=== PATIENT | female | born 2000 | race Caucasian/White ===

== ENCOUNTER 2020-12-22 21:33 | Emergency (ER) | payer MEDICAID, OTHER ==
--- NOTE | 2020-12-22 22:32 | EDM.PDOC ---
ED HPI GENERAL MEDICAL PROBLEM - General Chief Complaint: Respiratory Problem Stated Complaint: FEVER, ABDOMINAL PAIN, BODY ACHES, ASTHMA Time Seen by Provider: 12/22/20 21:36 Source of Information: Reports: Patient History Limitations: Reports: No Limitations - History of Present Illness INITIAL COMMENTS - FREE TEXT/NARRATIVE: 20-year-old female with history of asthma, , gestational age 21 weeks presents with fever, cough, myalgia, chills, throat discomfort. She had a T-max of 101.7 last night temporally. She denies dysuria or back pain but admits to right adnexal pain ONLY when she walks today. Pain is described as sharp. Currently she has no pain sitting there. She denies vaginal bleeding, leakage of fluid, mucous plug, nausea, vomiting, diarrhea. Her OB is Gaby Boo ROS: A 10-point review of systems, other than pertinent positives and negatives as stated per HPI, is otherwise negative Past medical history: No additional pertinent history Past Surgical history: No additional pertinent history Social history: No additional pertinent history Family history: No additional pertinent history PHYSICAL EXAM General: AOx4, GCS = 15, No distress HEENT: dry mucous membrane Neck: supple, no meningismus, no Kernig or Brudzinski Cardiac: S1S2 RRR Respiratory: CTAB, no crackles or rales, no wheezing Abdomen: Soft, FHT 152, nontender, no rebound or guarding, nondistended, no pulsatile mass. Back: nontender Musculoskeletal: NVI distally, no deformity Neuro: No focal deficits, CN 2 - 12 WNL. Right Lower Abdomen Pain Score (Numeric/FACES): 7 - Related Data Allergies Allergy/AdvReac Type Severity Reaction Status Date / Time No Known Allergies Allergy Verified 12/22/20 22:40 Home Meds: Home Meds Escitalopram Oxalate [Lexapro] 1 dose PO DAILY 12/22/20 [History] ED ROS GENERAL - Review of Systems Review Of Systems: See Below (see dictation) ED EXAM, GENERAL - Physical Exam Exam: See Below (see dictation) Course - Vital Signs Last Recorded V/S: Last Vital Signs Temp 97.6 F 12/22/20 22:40 Pulse 105 H 12/23/20 00:01 Resp 18 12/23/20 00:01 BP 109/54 L 12/23/20 00:01 Pulse Ox 98 12/23/20 00:01 - Orders/Labs/Meds Labs: Laboratory Tests 12/22/20 12/22/20 Range/Units 22:50 23:54 Urine Color DARK YELLOW Urine Appearance SLT CLOUDY Urine pH 5.5 (5.0-8.0) Ur Specific Hernando >= 1.030 (1.001-1.035) Urine Protein NEGATIVE (NEGATIVE) mg/dL Urine Glucose (UA) NEGATIVE (NEGATIVE) mg/dL Urine Ketones 15 H (NEGATIVE) mg/dL Urine Occult Blood NEGATIVE (NEGATIVE) Urine Nitrite NEGATIVE (NEGATIVE) Urine Bilirubin NEGATIVE (NEGATIVE) Urine Urobilinogen 1.0 (<2.0) EU/dL Ur Leukocyte Esterase NEGATIVE (NEGATIVE) Influenza Type A RNA NEGATIVE (NEGATIVE) Influenza Type B RNA NEGATIVE (NEGATIVE) SARS-CoV-2 RNA (MIYA) POSITIVE H (NEGATIVE) - Re-Assessments/Exams Free Text/Narrative Re-Assessment/Exam: 12/23/20 00:54 After observation in the ER, the patient improved and is currently stable for discharge. I performed a repeat exam and did not appreciate new abnormal findings. Patient exhibits normal vital signs and has a normal gait on road test. I advised the patient to return to the ER for reevaluation if symptoms worsened, including fever, worsening pain, or any other worrisome symptoms. I instructed the patient to follow up with their PCP within 2-3 days. MEDICAL DECISION MAKING: I reviewed the patients past medical records, lab and radiographic findings. I discussed the case with the patient. My differential diagnosis included: Covid, round ligament syndrome, UTI. This patient was evaluated for the symptoms described in the history of present illness. They were evaluated in the context of the global COVID-19 pandemic, which necessitated consideration that the patient might be at risk for infection with the SARS-CoV-2 virus that causes COVID-19. Institutional protocols and algorithms that pertain to the evaluation of patients at risk for COVID-19 are in a state of rapid change based on information released by regulatory bodies including the CDC and federal and state organizations. These policies and algorithms were followed during the patient's care. I wore full PPE, N95, face shield, gown and gloves throughout my evaluation and care of this patient. I recommended home isolation. given home isolation instructions. The patient is well appearing, not in respiratory distress, not hypoxic, no tachyneia, no retractions. I instructed patient to return immediately for worsening symptoms, sob, chest pain, lightheadedness or other concerns. Patient voiced understanding and questions answered. Departure - Departure Time of Disposition: 00:36 Disposition: Home, Self-Care 01 Condition: Good Clinical Impression: COVID-19, COVID-19 affecting in second trimester, Round ligament pain - Discharge Information *PRESCRIPTION DRUG MONITORING PROGRAM REVIEWED*: Not Applicable *COPY OF PRESCRIPTION DRUG MONITORING REPORT IN PATIENT KATRINA: Not Applicable Instructions: COVID-19 Vaccine Information, What You Should Know About COVID-19 to Protect Yourself and Others - CDC, and COVID-19, How to Wear and Take Off Your Mask - CDC (05/08/2020) Referrals: Bijan Wagner MD [Primary Care Provider] - 3 Days Forms: ED Department Discharge Additional Instructions: The need for follow-up, as well as the timing and circumstances, are variable depending upon the specifics of your emergency department visit. If you don't have a primary care physician on staff, we will provide you with a referral. We always advise you to contact your personal physician following an emergency department visit to inform them of the circumstance of the visit and for follow-up with them and/or the need for any referrals to a consulting specialist. The emergency department will also refer you to a specialist when appropriate. This referral assures that you have the opportunity for follow-up care with a specialist. All of these measure are taken in an effort to provide you with optimal care, which includes your follow-up. Under all circumstances we always encourage you to contact your private physician who remains a resource for coordinating your care. When calling for follow-up care, please make the office aware that this follow-up is from your recent emergency room visit. If for any reason you are refused follow-up, please contact the [facility] Emergency Department at and asked to speak to the emergency department charge nurse. If you do not have a primary care doctor, please follow up with the clinics below within 3-5 days. [facility] [address] [place] [id number] [facility] [address] [place] [phone] Sepsis Event Note (ED) - Focused Exam Vital Signs: Vital Signs Temp Pulse Resp BP Pulse Ox 12/23/20 00:01 105 H 18 109/54 L 98 12/22/20 22:40 97.6 F 99 16 114/64 97
[2020-12-22 23:52] LABS: CORONAVIRUS COVID-19 NAA POSITIVE (NEGATIVE); INFLUENZA A NAA NEGATIVE (NEGATIVE); INFLUENZA B NAA NEGATIVE (NEGATIVE)
--- NOTE | 2020-12-22 23:57 | CR ---
Indication: Chest pain Technique: Chest 1 view Comparison: None Findings/Impression: Cardiovascular and mediastinum: Heart size and vasculature are normal in caliber and appearance. Lungs and pleural space: No pleural effusion or pneumothorax. Minimal discoid atelectasis left lung base. Bones and soft tissues: Metal density overlies left breast, likely a clip. Dictated by Diallo Mayorga MD @ 12/22/2020 11:55:28 PM (Electronically Signed)
== END 2020-12-23 01:07 | disposition home or self-care (01) ==
LOC: MW.ED 21:33
DX: O98.512 Other viral diseases complicating pregnancy, second trimester (principal); U07.1 COVID-19; O99.891 Other specified diseases and conditions complicating pregnancy; R10.2 Pelvic and perineal pain; Z3A.21 21 weeks gestation of pregnancy
CPT/HCPCS: 0240U; 71045; 81003; 99284

== ENCOUNTER 2020-12-25 06:28 | Emergency (ER) | payer OTHER, MEDICAID ==
[2020-12-25] MEDS ORDERED: Albuterol/Ipratropium 3.0-0.5 MG/3 ML Neb Soln NEB ONE (06:47)
--- NOTE | 2020-12-25 07:53 | EDM.PDOC ---
ED HPI GENERAL MEDICAL PROBLEM - General Chief Complaint: Respiratory Problem Stated Complaint: ASTHMA ATTACK AND COVID POSITIVE Time Seen by Provider: 12/25/20 07:19 Source of Information: Reports: Patient History Limitations: Reports: No Limitations - History of Present Illness INITIAL COMMENTS - FREE TEXT/NARRATIVE: Patient is a 20-year-old female who is presents today for worsening Covid symptoms. Patient was tested positive for Covid recently states she also has asthma and feels that her asthma is bothering her. She is albuterol inhaler earlier so she is breathing better but has a chronic cough that she cannot get away from. States she is congested because she coughed so much. Patient denies any fever chills chest pain abdominal pain vaginal bleeding or discharge. Patient not tried any [id number] medication for her cough. 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: - Infectious Disease History Infectious Disease History: Reports: None Social & Family History - Family History Family Medical History: No Pertinent Family History - Tobacco Use Tobacco Use Status *Q: Never Tobacco User - Recreational Drug Use Recreational Drug Use: No ED ROS GENERAL - Review of Systems Review Of Systems: See Below Constitutional: Reports: No Symptoms HEENT: Reports: No Symptoms Respiratory: Reports: Cough Cardiovascular: Reports: No Symptoms Endocrine: Reports: No Symptoms GI/Abdominal: Reports: No Symptoms : Reports: No Symptoms Musculoskeletal: Reports: No Symptoms Skin: Reports: No Symptoms Neurological: Reports: No Symptoms Psychiatric: Reports: No Symptoms Hematologic/Lymphatic: Reports: No Symptoms Immunologic: Reports: No Symptoms ED EXAM, GENERAL - Physical Exam Exam: See Below Exam Limited By: No Limitations General Appearance: Alert, WD/WN, No Apparent Distress Eye Exam: Bilateral Eye: EOMI, PERRL Ears: Normal External Exam Throat/Mouth: Normal Inspection Head: Atraumatic Neck: Normal Inspection, Supple, Non-Tender Respiratory/Chest: No Respiratory Distress, Lungs Clear, Normal Breath Sounds Cardiovascular: Normal Peripheral Pulses, Regular Rate, Rhythm GI/Abdominal: Normal Bowel Sounds, Soft, Non-Tender Extremities: Normal Inspection, Normal Range of Motion Neurological: Alert, Oriented, Normal Cognition, Normal Gait Course - Vital Signs Last Recorded V/S: Last Vital Signs Temp 96.9 F 12/25/20 06:30 Pulse 103 H 12/25/20 07:10 Resp 18 12/25/20 07:10 BP 121/101 H 12/25/20 07:10 Pulse Ox 99 12/25/20 07:10 - Orders/Labs/Meds Orders: Active Orders 24 hr Category Date Time Status Cardiac Monitoring [RC] . DIRECTED Care 12/25/20 06:47 Active Pulse Oximetry [RC] ASDIRECTED Care 12/25/20 06:47 Active Meds: Medications Discontinued Medications Generic Name Dose Route Start Last Admin Trade Name Freq PRN Reason Stop Dose Admin Albuterol/Ipratropium 3 ml 12/25/20 06:47 12/25/20 07:09 Albuterol/Ipratropium 3.0-0.5 Mg/3 Ml Neb Soln NEB 12/25/20 06:48 3 ml ONETIME ONE Administration Departure - Departure Time of Disposition: 07:49 Disposition: Home, Self-Care 01 Condition: Good Clinical Impression: Cough - Discharge Information *PRESCRIPTION DRUG MONITORING PROGRAM REVIEWED*: Not Applicable *COPY OF PRESCRIPTION DRUG MONITORING REPORT IN PATIENT KATRINA: Not Applicable Instructions: Cough, Adult, [id number] Referrals: PCP,None [Primary Care Provider] - Additional Instructions: You were seen today for cough likely related to your Covid. We will send you home with cough medicine to help out with your coughing. If you have any increased shortness of breath please return to the ED or follow-up to primary care physician. Continue to follow-up with [facility]. The following information is given to patients seen in the emergency department who are being discharged to home. This information is to outline your options for follow-up care. We provide all patients seen in our emergency department with a follow-up referral. The need for follow-up, as well as the timing and circumstances, are variable depending upon the specifics of your emergency department visit. If you don't have a primary care physician on staff, we will provide you with a referral. We always advise you to contact your personal physician following an emergency department visit to inform them of the circumstance of the visit and for follow-up with them and/or the need for any referrals to a consulting specialist. The emergency department will also refer you to a specialist when appropriate. This referral assures that you have the opportunity for follow-up care with a specialist. All of these measure are taken in an effort to provide you with optimal care, which includes your follow-up. Under all circumstances we always encourage you to contact your private physician who remains a resource for coordinating your care. When calling for follow-up care, please make the office aware that this follow-up is from your recent emergency room visit. If for any reason you are refused follow-up, please contact the [facility] Emergency Department at and asked to speak to the emergency department charge nurse. Please follow up with your primary care physician. If you do not have a primary care physician, see below: [facility] [address] [place] [phone] [facility] [address] [place] [id number] [facility] [address] [place] [id number] [facility] [address] [place] [id number] Sepsis Event Note (ED) - Focused Exam Vital Signs: Vital Signs Temp Pulse Resp BP Pulse Ox 12/25/20 07:10 103 H 18 121/101 H 99 12/25/20 06:30 96.9 F 101 H 24 H 139/79 98 - Assessment/Plan Plan: Patient is a 20-year-old female history of asthma currently presents today for worsening cough. Patient was diagnosed with Covid a few days ago. On exam oxygen level was 100% on room air her lungs are clear bilaterally. Patient here mostly for the cough. We will send the patient home with cough suppressants and have patient follow-up with her PMD.
== END 2020-12-25 08:15 | disposition home or self-care (01) ==
LOC: MW.ED 06:28
DX: R05.9 Cough, unspecified (principal); Z86.16 Personal history of COVID-19
CPT/HCPCS: 94640; 99284-25; J7620-GY

== ENCOUNTER 2021-05-06 04:48 | Inpatient (IN) | payer MEDICAID ==
[2021-05-06] MEDS ORDERED: Misoprostol 200 MCG Tab PO PRN (05:54)
[2021-05-06] MEDS ORDERED: Lidocaine 1% 50 ML MDV INJECT PRN (05:54)
[2021-05-06] MEDS ORDERED: Tranexamic Acid 1,000 MG in Sodium Chloride 0.9% 100 ML IV PRN (05:54)
[2021-05-06] MEDS ORDERED: Carboprost Tromethamine 250 MCG/1 ML Amp IM PRN (05:54)
[2021-05-06] MEDS ORDERED: Methylergonovine 0.2 MG/1 ML Amp IM PRN (05:54)
[2021-05-06] MEDS ORDERED: Sodium Chloride 0.9% 2.5 ML Syringe FLUSH PRN (05:54)
[2021-05-06] MEDS ORDERED: Sodium Chloride 0.9% 20 ML SDV IV PRN (05:54)
[2021-05-06] MEDS ORDERED: Sodium Chloride 0.9% 10 ML Syringe FLUSH PRN (05:54)
[2021-05-06] MEDS ORDERED: Water For Irrigation,Sterile 1,000 ML Container IRR PRN (05:54)
[2021-05-06] MEDS ORDERED: Oxytocin/0.9 % Sodium Chloride 30 UNIT/500 ML BAG IV SCH ×2 (06:00→08:15)
[2021-05-06] MEDS ORDERED: Terbutaline 1 MG/ML SDV SUBCUT PRN (08:14)
[2021-05-06] MEDS: Lactated Ringers 1,000 ML IV SCH ×3 (08:50→19:21)
[2021-05-06] MEDS: Butorphanol 1 MG/ML SDV IVPUSH PRN ×2 (09:25→13:41)
[2021-05-06] MEDS ORDERED: Ropivacaine 100 ML ONE (15:15)
[2021-05-06] MEDS ORDERED: fentaNYL 100 MCG/2 ML SDV ONE (15:15)
[2021-05-06] MEDS ORDERED: Ampicillin 2 GM in Sodium Chloride 0.9% 100 ML IV ONE (19:00)
[2021-05-06] MEDS: Acetaminophen 500 MG Tab PO PRN (19:23)
[2021-05-06] MEDS ORDERED: SODIUM CHLORIDE 0.9% IV ONE (20:00)
[2021-05-06] MEDS ORDERED: GENTAMICIN IV ONE (20:00)
[2021-05-06] MEDS: Ampicillin 1 GM in Sodium Chloride 0.9% 50 ML IV SCH (23:37)
[2021-05-07] MEDS: Acetaminophen 500 MG Tab PO PRN ×3 (01:24→16:26)
[2021-05-07] MEDS ORDERED: fentaNYL 100 MCG/2 ML SDV ONE ×2 (01:35→09:08)
[2021-05-07] MEDS ORDERED: Ropivacaine 100 ML ONE ×2 (01:36→09:08)
[2021-05-07] MEDS ORDERED: Bupivacaine 0.25% 10 ML SDV ONE (01:38)
[2021-05-07] MEDS: Ampicillin 1 GM in Sodium Chloride 0.9% 50 ML IV SCH ×2 (03:39→07:55)
[2021-05-07] MEDS ORDERED: Ondansetron 4 MG/2 ML SDV IVPUSH ONE (07:29)
[2021-05-07] MEDS ORDERED: Lanolin 100% Cream 7 GM Tube TOP PRN (09:27)
[2021-05-07] MEDS ORDERED: Witch Hazel Medicated Pads 40/Jar TOP PRN (09:27)
[2021-05-07] MEDS ORDERED: Bisacodyl 10 MG Supp RECTAL PRN (09:27)
[2021-05-07] MEDS ORDERED: Benzocaine/Menthol 20%-0.5% Spray 78 GM Cannister TOP PRN (09:27)
[2021-05-07] MEDS: Ibuprofen 800 MG Tab PO PRN ×2 (10:01→20:01)
[2021-05-07] MEDS: oxyCODONE 5 MG Tab PO PRN (10:40)
[2021-05-07] MEDS ORDERED: GENTAMICIN IV SCH (20:00)
[2021-05-07] MEDS ORDERED: SODIUM CHLORIDE 0.9% IV SCH (20:00)
[2021-05-07] MEDS: Docusate Sodium 100 MG Cap PO PRN (20:01)
[2021-05-08] MEDS: Acetaminophen 500 MG Tab PO PRN (03:03)
[2021-05-08] MEDS: Ibuprofen 800 MG Tab PO PRN ×2 (07:33→18:40)
[2021-05-08] MEDS: Escitalopram 10 MG Tab PO SCH (09:21)
[2021-05-08] MEDS: Docusate Sodium 100 MG Cap PO PRN (09:22)
[2021-05-08] MEDS: oxyCODONE 5 MG Tab PO PRN (23:25)
[2021-05-09] MEDS: Docusate Sodium 100 MG Cap PO PRN (00:14)
[2021-05-09] MEDS: Ibuprofen 800 MG Tab PO PRN (06:05)
[2021-05-09] MEDS: Escitalopram 10 MG Tab PO SCH (10:31)
== END 2021-05-09 12:55 | disposition home or self-care (01) | DRG 805 ==
LOC: MW.OBCHECK 04:48 → MW.OB 04:49 → MW.OBCHECK 05:54 → MW.OB 05:54 → OBSVTOIN 05-07 09:27 → MW.OB 05-07 14:25
PROVIDERS: ADMIT Obstetrics & Gynecology; ATTEND Obstetrics & Gynecology
PROC: 10E0XZZ Delivery of Products of Conception, External Approach (ICD-10-PCS; principal; 2021-05-07)
PROC: 3E0R3BZ Introduction of Anesthetic Agent into Spinal Canal, Percutaneous Approach (ICD-10-PCS; 2021-05-07)
PROC: 00HU33Z Insertion of Infusion Device into Spinal Canal, Percutaneous Approach (ICD-10-PCS; 2021-05-07)
PROC: 0HQ9XZZ Repair Perineum Skin, External Approach (ICD-10-PCS; 2021-05-07)
DX: O42.92 Full-term premature rupture of membranes, unspecified as to length of time between rupture and onset of labor (principal); O41.1230 Chorioamnionitis, third trimester, not applicable or unspecified; Z37.0 Single live birth; Z3A.40 40 weeks gestation of pregnancy; O99.52 Diseases of the respiratory system complicating childbirth; J45.909 Unspecified asthma, uncomplicated; O99.344 Other mental disorders complicating childbirth; F41.8 Other specified anxiety disorders; O77.0 Labor and delivery complicated by meconium in amniotic fluid; O70.0 First degree perineal laceration during delivery; Z20.822 Contact with and (suspected) exposure to COVID-19; Z86.16 Personal history of COVID-19
CPT/HCPCS: 01967; 36415; 51702; 59025; 59200; 59409; 80170; 84112; 85014; 85018; 85027; 86592; 86850; 86900; 86901; A9270-GY; J0290; J0595; J1580; J2405; J2590; J2795; J3010; J3490; J7120; U0002

== ENCOUNTER 2021-11-23 18:19 | Emergency (ER) | payer MEDICAID | END 2021-11-23 21:00 | disposition home or self-care (01) | LOC: MW.ED 18:19 | DX: S62.626A Displaced fracture of middle phalanx of right little finger, initial encounter for closed fracture (principal); J45.909 Unspecified asthma, uncomplicated; Z86.16 Personal history of COVID-19; Z79.899 Other long term (current) drug therapy; Z91.048 Other nonmedicinal substance allergy status; W22.8XXA Striking against or struck by other objects, initial encounter | CPT/HCPCS: 73130-26-RT; 73130-RT; 99282; 99283 ==

== ENCOUNTER 2023-04-18 21:13 | Emergency (ER) | payer MEDICAID, OTHER ==
[2023-04-18] MEDS ORDERED: Naloxone 0.4 MG/ML SDV IVPUSH PRN (22:46)
[2023-04-18 22:59] LABS: BASOPHILS ABSOLUTE AUTO 0.03 K/uL (0.00-0.20); BASOPHILS PERCENT AUTO 0.3 % (0.0-1.0); EOSINOPHILS ABSOLUTE AUTO 0.26 K/uL (0.00-0.45); EOSINOPHILS PERCENT AUTO 2.6 % (0.0-6.0); HEMATOCRIT 37.2 % (37.0-47.0); HEMOGLOBIN 12.5 g/dL (12.0-16.0); IMMATURE GRAN ABSOLUTE AUTO 0.02 K/uL (0.00-0.05); IMMATURE GRAN PERCENT AUTO 0.2 % (0.0-0.4); LYMPHOCYTES ABSOLUTE AUTO 3.86 K/uL (1.00-4.80); LYMPHOCYTES PERCENT AUTO 38.8 % (24.0-44.0); MEAN CORPUSCULAR HEMOGLOBIN 29.8 pg (28.0-32.0); MEAN CORPUSCULAR HGB CONC 33.6 g/dL (32.0-36.0); MEAN CORPUSCULAR VOLUME 88.8 fL (83.0-99.0); MEAN PLATELET VOLUME 9.6 fL (9.4-12.3); MONOCYTES ABSOLUTE AUTO 0.43 K/uL (0.00-0.80); MONOCYTES PERCENT AUTO 4.3 % (0.0-8.0); NEUTROPHILS ABSOLUTE AUTO 5.36 K/uL (1.80-7.70); NEUTROPHILS PERCENT AUTO 53.8 % (41.0-71.0); PLATELET COUNT,PLT 265 K/uL (150-400); RED BLOOD CELL COUNT 4.19 M/uL (4.10-5.30); WHITE BLOOD CELL COUNT,WBC 9.96 K/uL (3.9-11.3)
[2023-04-18] MEDS: Ondansetron 4 MG/2 ML SDV IVPUSH STA (23:01)
[2023-04-18] MEDS: Morphine 4 MG/ML Syringe IVPUSH STA (23:01)
[2023-04-18] MEDS: Sodium Chloride 0.9% 1,000 ML IV STA (23:01)
[2023-04-18 23:18] LABS: INR 1.07 (0.86-1.11)
[2023-04-18 23:24] LABS: A/G RATIO 1.2 (0.9-1.6); ALBUMIN 3.8 g/dL (3.4-5.0); BILIRUBIN TOTAL 0.5 mg/dL (0.2-1.0); CALCIUM 8.8 mg/dL (8.5-10.1); CARBON DIOXIDE,CO2 27.1 mmol/L (21.0-32.0); CREATININE 0.8 mg/dL (0.6-1.0); EST CRCL DRUG DOSING (CG) 100.63 mL/min; POTASSIUM,K 3.8 mmol/L (3.5-5.1); PROTEIN TOTAL,TP 7.1 g/dL (6.4-8.2)
[2023-04-18 23:35] LABS: BILIRUBIN,URINE NEGATIVE (NEGATIVE); GLUCOSE,URINE NEGATIVE (NEGATIVE); KETONES,URINE NEGATIVE (NEGATIVE); LEUKOCYTE ESTERASE,URINE NEGATIVE (NEGATIVE); NITRITE,URINE NEGATIVE (NEGATIVE); OCCULT BLOOD,URINE MODERATE (NEGATIVE); PROTEIN,URINE 100 mg/dL (NEGATIVE); UROBILINOGEN,URINE 0.2 EU/dL (<2.0)
[2023-04-18 23:36] LABS: APPEARANCE,URINE CLOUDY; COLOR,URINE RED; EPITHELIAL CELLS,URINE RARE (NONE-FEW); RBC,URINE TOO NUMEROUS TO CT (0-2/HPF); WBC,URINE 0-1 (0-5/HPF)
[2023-04-18 23:37] LABS: BACTERIA,URINE RARE (NEGATIVE)
[2023-04-19] MEDS: oxyCODONE 5 MG Tab PO STA (00:28)
== END 2023-04-19 00:55 | disposition home or self-care (01) ==
LOC: MW.ED 21:13
DX: O03.9 Complete or unspecified spontaneous abortion without complication (principal); Z67.40 Type O blood, Rh positive; Z91.048 Other nonmedicinal substance allergy status; Z86.16 Personal history of COVID-19
CPT/HCPCS: 36415; 80053; 81001; 84702; 85025; 85610; 86850; 86900; 86901; 96361; 96374; 96375; 99284; A9270; J2270; J2405; J7030

== ENCOUNTER 2023-05-15 19:01 | Emergency (ER) | payer MEDICAID ==
[2023-05-15] MEDS: traMADol 50 MG Tab PO STA (20:41)
[2023-05-15] MEDS: Amoxicillin/Clavulanate K 875-125 MG Tab PO STA (20:41)
== END 2023-05-15 20:44 | disposition home or self-care (01) ==
LOC: MW.ED 19:01
DX: K02.9 Dental caries, unspecified (principal); M26.603 Bilateral temporomandibular joint disorder, unspecified; Z75.8 Other problems related to medical facilities and other health care; Z91.048 Other nonmedicinal substance allergy status; Z79.899 Other long term (current) drug therapy
CPT/HCPCS: 99283; A9270